=== PATIENT | female | born 1945 | race Caucasian/White ===

== ENCOUNTER 2017-03-15 13:11 | Emergency (ER) | payer MEDICARE, OTHER ==
[2017-03-15 13:39] VITALS: BP 132/59; PULSE 63; RESP 18; TEMP 98.1
[2017-03-15] MEDS ORDERED: GELATIN SPONGE,ABSORB (SMALL) 1 EACH SPONGE TOPICAL STA (13:57)
--- NOTE | 2017-03-15 13:59 | ED ---
Animal Bite HPI - General Chief Complaint: Animal Bite Stated Complaint: Dog Bite Time Seen by Provider: 03/15/17 13:41 Source: patient, RN notes reviewed, old records reviewed Mode of arrival: ambulatory Limitations: no limitations - History of Present Illness Initial Comments: This is a 72-year-old female presenting to emergency Department with chief complaint of a dog bite to her right fifth finger. Patient reports this occurred yesterday. She reports that she went to urgent care today to have it looked at because it continued to bleed. She reports that urgent care center here because they did not trust her that she knew the dog status of the rabies vaccination. Patient reports that her neighbor's dog does go to the reverse logistics analyst named Dr. Nichole. She reports that she believes that the dog is up- to-date on its vaccinations and has not missed a concern for rabies. Patient wound is superficial, no skin or deep laceration that needs to be sutured. She reports that she has full range of motion in the finger. She denies any other injuries or puncture wounds. Patient reports it is a small toy dog that caused the bite. Patient denies any recent fever, chills, shortness of breath, chest pain, back pain, abdominal pain, nausea vomiting, numbness or tingling, dysuria or hematuria, constipation or diarrhea, headaches or visual changes, or any other current symptoms - Related Data Previous Rx's Medication Instructions Recorded Amoxic-Pot Clav 875-125Mg 1 tab PO Q12HR #20 tablet 03/15/17 [Augmentin 875-125] Allergies Allergy/AdvReac Type Severity Reaction Status Date / Time No Known Allergies Allergy Verified 03/15/17 13:58 Review of Systems ROS Statement: Those systems with pertinent positive or pertinent negative responses have been documented in the HPI. ROS Other: All systems not noted in ROS Statement are negative. Past Medical History Past Medical History: No Reported History History of Any Multi-Drug Resistant Organisms: None Reported Past Surgical History: Section, Hysterectomy Past Psychological History: Depression Smoking Status: Never smoker Past Alcohol Use History: Occasional Past Drug Use History: None Reported General Exam - General Exam Comments Initial Comments: This is a 72-year-old female. No acute distress. She looks good for 7 Limitations: no limitations General appearance: alert, in no apparent distress Head exam: Present: atraumatic, normocephalic, normal inspection Eye exam: Present: normal appearance, PERRL, EOMI. Absent: scleral icterus, conjunctival injection, periorbital swelling ENT exam: Present: normal exam, mucous membranes moist Neck exam: Present: normal inspection. Absent: tenderness, meningismus, lymphadenopathy Respiratory exam: Present: normal lung sounds bilaterally. Absent: respiratory distress, wheezes, rales, rhonchi, stridor Cardiovascular Exam: Present: regular rate, normal rhythm, normal heart sounds. Absent: systolic murmur, diastolic murmur, rubs, gallop, clicks GI/Abdominal exam: Present: soft Extremities exam: Present: normal inspection, full ROM, normal capillary refill , other (1 cm laceration over her right fifth finger in the proximal dip. No deep laceration or puncture wounds that need to be sutured.). Absent: tenderness, pedal edema, joint swelling, calf tenderness Back exam: Present: normal inspection Neurological exam: Present: alert, oriented X3, CN II-XII intact Psychiatric exam: Present: normal affect, normal mood Skin exam: Present: warm, dry, intact, normal color. Absent: rash Course Vital Signs 03/15/17 13:35 Temperature 98.1 F Pulse Rate 63 Respiratory 18 Rate Blood Pressure 132/59 O2 Sat by Pulse 99 Oximetry Medical Decision Making - Medical Decision Making This is a 72-year-old female presenting to emergency Department with chief complaint of a dog bite to her right fifth finger. Patient reports this occurred yesterday. She reports that she went to urgent care today to have it looked at because it continued to bleed. She reports that urgent care center here because they did not trust her that she knew the dog status of the rabies vaccination. Patient reports that her neighbor's dog does go to the reverse logistics analyst named Dr. Nichole. She reports that she believes that the dog is up- to-date on its vaccinations and has not missed a concern for rabies. Patient wound is superficial, no skin or deep laceration that needs to be sutured. She reports that she has full range of motion in the finger. She denies any other injuries or puncture wounds. Patient reports it is a small toy dog that caused the bite. Patient reports that she is 99% sure that the dog is up-to-date on rabies needed help. Discussed the risks and benefits of doing this. Patient states that she does not want to receive the rabies prophylaxis. Patient will be started on Augmentin. Her finger was wrapped with Gelfoam and tube gauze. Patient will be instructed to follow-up with her primary care provider in next 2 or 3 days or return if there is any signs of infection over the hand. Discussed asking her neighbor to be under percent sure that she does not need to worry about rabies any vomiting. Patient has history plan will comply. Return parameters were discussed. Disposition Clinical Impression: Dog bite Disposition: HOME SELF-CARE Condition: Good Instructions: Animal Bite (ED) Additional Instructions: Patient advised to keep the finger covered for the next 48 hours. Asked her neighbor if the dog is up-to-date on vaccinations including rabies. If not the dog just needs to be 14 for the next 48 hours.If no signs or symptoms of rabies your findings and do not need to worry about the rabies immunoglobulin vaccinations. Completely anabiotic prescriptions. Return emergency department if any alarming signs or symptoms occur. Prescriptions: Amoxic-Pot Clav 875-125Mg [Augmentin 875-125] 1 tab PO Q12HR #20 tablet Referrals: John Davis DO [Primary Care Provider] - 1-2 days Time of Disposition: 13:57
== END 2017-03-15 14:15 | disposition home or self-care (01) ==
LOC: EC 13:11
DX: S61.216A Laceration without foreign body of right little finger without damage to nail, initial encounter (principal); W54.0XXA Bitten by dog, initial encounter
CPT/HCPCS: 99283

== ENCOUNTER 2018-06-04 13:11 | Emergency (ER) | payer MEDICARE, OTHER ==
[2018-06-04 13:22] VITALS: RESP 18
[2018-06-04] MEDS ORDERED: SODIUM CHLORIDE 0.9% 1,000 ML IV STA (14:09)
[2018-06-04] MEDS ORDERED: ONDANSETRON 4 MG/2 ML VIAL IVP STA (14:09)
--- NOTE | 2018-06-04 14:13 | ED ---
General Adult HPI - General Chief complaint: Nausea/Vomiting/Diarrhea Stated complaint: Diarrhea & Nausea Source: patient Mode of arrival: ambulatory Limitations: no limitations - History of Present Illness Initial comments: Dictation was produced using [employer] dictation software. please excuse any grammatical, word or spelling errors. Chief Complaint: 73-year-old female past medical history of Alzheimer' s and hypertension presents with 5 days of diarrhea. History of Present Illness: Patient states he recently had traveled to [place] for a vacation. She had finished the night before the onset of her symptoms. Couple hours before the onset of her symptoms she ate some crepes at the local [employer]. States she's been having multiple bouts of watery diarrhea. Patient denies any abdominal pain. No vomiting however there is some nausea. No recent antibiotics. No travel outside the [place] within the last several years. Denies any constitutional symptoms The ROS documented in this emergency department record has been reviewed and confirmed by me. Those systems with pertinent positive or negative responses have been documented in the HPI. All other systems are other negative and/or noncontributory. - Related Data Home Medications Medication Instructions Recorded Confirmed Aspirin 81 mg PO HS 06/04/18 06/04/18 Cholecalciferol (Vitamin D3) 3,000 unit PO HS 06/04/18 06/04/18 [Vitamin D3] DULoxetine HCL [Cymbalta] 60 mg PO DAILY 06/04/18 06/04/18 Losartan Potassium 100 mg PO DAILY 06/04/18 06/04/18 Potassium Chloride ER [K-Dur 10] 10 meq PO DAILY 06/04/18 06/04/18 Previous Rx's Medication Instructions Recorded Loperamide HCl [Imodium A-D] 2 mg PO QID PRN #20 tablet 06/04/18 Ondansetron Odt [Zofran Odt] 4 mg PO Q8HR PRN #12 tab 06/04/18 Allergies Allergy/AdvReac Type Severity Reaction Status Date / Time No Known Allergies Allergy Verified 06/04/18 13:17 Review of Systems ROS Statement: Those systems with pertinent positive or pertinent negative responses have been documented in the HPI. ROS Other: All systems not noted in ROS Statement are negative. Past Medical History Past Medical History: Hypertension Additional Past Medical History / Comment(s): alzheimers History of Any Multi-Drug Resistant Organisms: None Reported Past Surgical History: Section, Hysterectomy Past Psychological History: Depression Smoking Status: Never smoker Past Alcohol Use History: Occasional Past Drug Use History: None Reported General Exam - General Exam Comments Initial Comments: PHYSICAL EXAM: General Impression: Alert and oriented x3, not in acute distress HEENT: Normocephalic atraumatic, extra-ocular movements intact, pupils equal and reactive to light bilaterally, mucous membranes moist. Cardiovascular: Heart regular rate and rhythm, S1&S2 audible, no murmurs, rubs or gallops Chest: Lungs clear to auscultation bilaterally, no rhonchi, no wheeze, no rales Abdomen: Bowel sounds present, abdomen soft, non-tender, non-distended, no organomegaly Musculoskeletal: Pulses present and equal in all extremities, no peripheral edema Motor: Power 5/5 bilaterally, no focal deficits noted Neurological: CN II-XII grossly intact, no focal motor or sensory deficits noted Skin: Intact with no visualized rashes Psych: Normal affect and mood Limitations: no limitations Course Vital Signs 06/04/18 06/04/18 13:17 14:38 Temperature 98.7 F Pulse Rate 66 65 Respiratory 18 18 Rate Blood Pressure 155/69 168/76 O2 Sat by Pulse 100 99 Oximetry Medical Decision Making - Medical Decision Making ED course: 73-year-old female with chief complaint of diarrhea. vital signs upon arrival are within acceptable limits. No indication for antibiotic administration given no high-risk features in history of present illness. Laboratory evaluation obtained. No high-risk features for patient's diarrhea. No indication for antibiotics. Patient be given loperamide. She is also given Zofran to tolerate by mouth to maintain hydration. She is follow-up with primary care physician upon discharge. Patient understandable agreeable to this plan. - Lab Data Result diagrams: 06/04/18 14:29 06/04/18 14:29 Lab Results 06/04/18 06/04/18 Range/Units 14:29 14:29 WBC 8.4 (3.8-10.6) k/uL RBC 4.41 (3.80-5.40) m/uL Hgb 13.2 (11.4-16.0) gm/dL Hct 39.2 (34.0-46.0) % MCV 88.9 (80.0-100.0) fL MCH 29.9 (25.0-35.0) pg MCHC 33.6 (31.0-37.0) g/dL RDW 13.5 (11.5-15.5) % Plt Count 266 (150-450) k/uL Neutrophils % 71 % Lymphocytes % 21 % Monocytes % 4 % Eosinophils % 3 % Basophils % 1 % Neutrophils # 6.0 (1.3-7.7) k/uL Lymphocytes # 1.8 (1.0-4.8) k/uL Monocytes # 0.4 (0-1.0) k/uL Eosinophils # 0.2 (0-0.7) k/uL Basophils # 0.0 (0-0.2) k/uL Sodium 143 (137-145) mmol/L Potassium 4.0 (3.5-5.1) mmol/L Chloride 109 H (98-107) mmol/L Carbon Dioxide 23 (22-30) mmol/L Anion Gap 11 mmol/L BUN 24 H (7-17) mg/dL Creatinine 0.90 (0.52-1.04) mg/dL Est GFR (CKD-EPI)AfAm 74 (>60 ml/min/1.73 sqM) Est GFR (CKD-EPI)NonAf 64 (>60 ml/min/1.73 sqM) Glucose 87 (74-99) mg/dL Calcium 9.9 (8.4-10.2) mg/dL Total Bilirubin 1.2 (0.2-1.3) mg/dL AST 21 (14-36) U/L ALT 21 (9-52) U/L Alkaline Phosphatase 71 (38-126) U/L Total Protein 7.8 (6.3-8.2) g/dL Albumin 4.7 (3.5-5.0) g/dL Lipase 107 (23-300) U/L Disposition Clinical Impression: Diarrhea Disposition: HOME SELF-CARE Instructions: Acute Diarrhea (ED) Prescriptions: Loperamide HCl [Imodium A-D] 2 mg PO QID PRN #20 tablet PRN Reason: Diarrhea Ondansetron Odt [Zofran Odt] 4 mg PO Q8HR PRN #12 tab PRN Reason: Nausea Is patient prescribed a controlled substance at d/c from ED?: No Referrals: John Davis DO [Primary Care Provider] - 1-2 days Time of Disposition: 15:24
[2018-06-04 15:03] LABS: Basophils % (A) 1 %; Eosinophils # (A) 0.2 k/uL (0-0.7); Eosinophils % (A) 3 %; HCT 39.2 % (34.0-46.0); HGB 13.2 gm/dL (11.4-16.0); Lymphocytes # (A) 1.8 k/uL (1.0-4.8); Lymphocytes % (A) 21 %; MCH 29.9 pg (25.0-35.0); MCHC 33.6 g/dL (31.0-37.0); MCV 88.9 fL (80.0-100.0); Mean Platelet Volume 6.8; Monocytes # (A) 0.4 k/uL (0-1.0); Monocytes % (A) 4 %; Neutrophils % (A) 71 %; Platelet Count 266 k/uL (150-450); RBC 4.41 m/uL (3.80-5.40); RDW 13.5 % (11.5-15.5); WBC 8.4 k/uL (3.8-10.6)
[2018-06-04 15:06] LABS: Albumin 4.7 g/dL (3.5-5.0); Calcium 9.9 mg/dL (8.4-10.2); Total Bilirubin 1.2 mg/dL (0.2-1.3); Total Protein 7.8 g/dL (6.3-8.2)
[2018-06-04 16:14] VITALS: BP 182/76; PULSE 70; TEMP 98.1
== END 2018-06-04 16:15 | disposition home or self-care (01) ==
LOC: EC 13:11
DX: R19.7 Diarrhea, unspecified (principal); R11.0 Nausea; I10 Essential (primary) hypertension; F32.9 Major depressive disorder, single episode, unspecified; Z79.82 Long term (current) use of aspirin; Z79.899 Other long term (current) drug therapy
CPT/HCPCS: 36415; 80053; 83690; 85025; 99284; 96374; 96361; J2405

== ENCOUNTER 2018-09-21 08:04 | Day surgery (SDC) | payer MEDICARE, OTHER ==
[2018-09-19 10:27] VITALS: BMI 27.1
[~2018-09-21 08:04] MED LIST: LACTATED RINGERS 1,000 ML IV SCH; LIDOCAINE 1% 20 ML VIAL (10MG/ML) FOR IV START INTRADERMA PRN
[2018-09-21 08:49] VITALS: RESP 16; TEMP 98
[2018-09-21] MEDS ORDERED: PROPOFOL 10 MG/ML 20 ML VIAL IV ONE (09:11)
--- NOTE | 2018-09-21 09:37 | P.PCN ---
Date of Procedure: 09/21/18 Procedure(s) Performed: BRIEF HISTORY: Patient is a 73-year-old pleasant female, scheduled for an elective colonoscopy as a part of screening for colorectal neoplasia. PROCEDURE PERFORMED: Colonoscopy. PREOPERATIVE DIAGNOSIS: Screening for colon cancer. IV sedation per Anesthesia. PROCEDURE: After informed consent was obtained, the patient, was brought into the endoscopy unit. IV sedation was administered by Anesthesia under continuous monitoring. Digital rectal examination was normal. Initially the Olympus CF- 160 flexible video colonoscope was then inserted in the rectum and the scope could not be advanced beyond the sigmoid colon. The scope was removed and a pediatric colonoscope was then introduced into the rectum and gradually gradually advanced into the cecum without any difficulty. Careful examination was performed as the scope was gradually being withdrawn. Ileocecal valve and the appendiceal orifice were visualized and appeared normal. Prep was excellent. Mucosa of the cecum, ascending colon, transverse colon, descending colon, sigmoid colon, and rectum appeared normal. Scattered sigmoidal diverticulosis seen. Retroflexion was performed in the rectum and no lesions were seen. The patient tolerated the procedure well. IMPRESSION: Normal-appearing colon from rectum to cecum with no evidence of colorectal neoplasia. Scattered sigmoid diverticulosis. RECOMMENDATIONS: Findings of this examination were discussed with the patient as well as a family. She was advised to have a repeat screening colonoscopy in 10 years.
[2018-09-21 10:09] VITALS: BP 154/65; PULSE 56
== END 2018-09-21 10:41 | disposition home or self-care (01) ==
LOC: ORWHC2ENDO 08:04
PROVIDERS: ATTEND Internal Medicine Gastroenterology
DX: Z12.11 Encounter for screening for malignant neoplasm of colon (principal); K57.30 Diverticulosis of large intestine without perforation or abscess without bleeding; F41.9 Anxiety disorder, unspecified; F03.90 Unspecified dementia, unspecified severity, without behavioral disturbance, psychotic disturbance, mood disturbance, and anxiety; Z79.82 Long term (current) use of aspirin; Z79.899 Other long term (current) drug therapy
CPT/HCPCS: J2704; G0121

== ENCOUNTER 2020-09-24 14:29 | Emergency (ER) | payer MEDICARE, OTHER ==
--- NOTE | 2020-09-24 16:43 | ED ---
Psych HPI - General Source: patient, family, RN notes reviewed Mode of arrival: ambulatory Limitations: no limitations <Mynor Gaxiola - Last Filed: 09/24/20 16:42> <Dayo Casper - Last Filed: 09/30/20 23:17> - General Chief Complaint: Psychiatric Symptoms Stated Complaint: psych-sent by PCP Time Seen by Provider: 09/24/20 14:43 - History of Present Illness Initial Comments: This a 75-year-old female presents emergency Department from PCPs office for psychiatric evaluation. Patient reportedly has a history of Alzheimer's but the last day or 2 she developed psychotic features. Patient has been very paranoid believing that people are in her house. Patient is here with significant other stating that she's been up all night he states that she thought he was some he also in the household. She also believes that her daughter lives in the house though she does not. She has no physical complaints. No history of this. Patient denies being suicidal or homicidal (Mynor Gaxiola) - Related Data Home Medications Medication Instructions Recorded Confirmed DULoxetine HCL [Cymbalta] 60 mg PO DAILY 06/04/18 09/24/20 Losartan Potassium 100 mg PO DAILY 06/04/18 09/24/20 Donepezil [Aricept] 10 mg PO HS 09/05/18 09/24/20 Acetaminophen [Tylenol] 650 mg PO Q6H PRN 09/24/20 09/24/20 Cyanocobalamin (Vitamin B-12) 1,000 mcg PO DAILY 09/24/20 09/24/20 [Vitamin B-12] Memantine [Namenda] 10 mg PO BID 09/24/20 09/24/20 Metoprolol Succinate [Toprol XL] 25 mg PO DAILY 09/24/20 09/24/20 Potassium Chloride [Klor-Con 10] 10 meq PO DAILY 09/24/20 09/24/20 QUEtiapine [SEROquel] 100 mg PO BID 09/24/20 09/24/20 Sennosides-Docusate Sodium 1 tab PO BID PRN 09/24/20 09/24/20 [Senokot-S] Spironolactone 12.5 mg PO DAILY 09/24/20 09/24/20 cloNIDine HCL [Catapres] 0.1 mg PO HS 09/24/20 09/24/20 hydrALAZINE HCL [Apresoline] 100 mg PO BID 09/24/20 09/24/20 Allergies Allergy/AdvReac Type Severity Reaction Status Date / Time No Known Allergies Allergy Verified 09/24/20 16:25 Review of Systems ROS Other: All systems not noted in ROS Statement are negative. <Mynor Gaxiola - Last Filed: 09/24/20 16:42> ROS Other: All systems not noted in ROS Statement are negative. <Dayo Casper - Last Filed: 09/30/20 23:17> ROS Statement: Those systems with pertinent positive or pertinent negative responses have been documented in the HPI. Past Medical History Past Medical History: Asthma, GERD/Reflux, Hypertension, Memory Impairment, Renal Disease, Skin Disorder Additional Past Medical History / Comment(s): Alzheimers. ASTHMA CHILD. HX BOWEL IRREG, HAS ALOT OF GAS. CHRONIC KIDNEY FAILURE, PER LABS. SL RASH ON SHINS. History of Any Multi-Drug Resistant Organisms: None Reported Past Surgical History: Section, Cholecystectomy, Hysterectomy Additional Past Surgical History / Comment(s): COLONOSCOPY. Past Anesthesia/Blood Transfusion Reactions: Motion Sickness Past Psychological History: Depression Smoking Status: Never smoker Past Alcohol Use History: Occasional Past Drug Use History: None Reported - Past Family History Mother Family Medical History: Dementia <Mynor Gaxiola - Last Filed: 09/24/20 16:42> General Exam Limitations: no limitations General appearance: alert, in no apparent distress, anxious Head exam: Present: atraumatic, normocephalic, normal inspection Eye exam: Present: normal appearance, PERRL, EOMI. Absent: scleral icterus, conjunctival injection, periorbital swelling ENT exam: Present: normal exam, normal oropharynx, mucous membranes moist Neck exam: Present: normal inspection, full ROM. Absent: tenderness, meningis mus, lymphadenopathy Respiratory exam: Present: normal lung sounds bilaterally. Absent: respiratory distress, wheezes, rales, rhonchi, stridor Cardiovascular Exam: Present: regular rate, normal rhythm, normal heart sounds. Absent: systolic murmur, diastolic murmur, rubs, gallop, clicks GI/Abdominal exam: Present: soft, normal bowel sounds. Absent: distended, tenderness, guarding, rebound, rigid Neurological exam: Present: alert, oriented X3, CN II-XII intact Psychiatric exam: Present: anxious Skin exam: Present: warm, dry, intact, normal color. Absent: rash <Mynor Gaxiola - Last Filed: 09/24/20 16:42> Course Vital Signs 09/24/20 09/24/20 09/24/20 14:35 17:54 18:00 Temperature 98.0 F 96.2 F L Pulse Rate 66 67 Respiratory 20 17 18 Rate Blood Pressure 194/73 165/79 O2 Sat by Pulse 100 99 Oximetry 09/24/20 09/24/20 09/25/20 19:00 23:52 06:44 Temperature 98.4 F 98.4 F Pulse Rate 10 L 62 Respiratory 18 16 16 Rate Blood Pressure 191/86 192/65 O2 Sat by Pulse 99 98 99 Oximetry 09/25/20 09/25/20 09/25/20 08:32 09:22 13:00 Temperature 98.4 F Pulse Rate 71 72 72 Respiratory 18 18 18 Rate Blood Pressure 191/81 138/65 138/65 O2 Sat by Pulse 98 98 98 Oximetry Medical Decision Making - Lab Data Result diagrams: 09/25/20 07:11 09/25/20 07:11 - EKG Data -: EKG Interpreted by Id EKG shows normal: sinus rhythm, axis (Normal), intervals (Normal), QRS complexes (Normal), ST-T waves (Normal) Rate: bradycardia (Rate 57 bpm) <Dayo Casper - Last Filed: 09/30/20 23:17> - Lab Data Lab Results 09/24/20 09/25/20 09/25/20 Range/Units 16:53 07:11 07:11 WBC 9.2 (3.8-10.6) k/uL RBC 3.87 (3.80-5.40) m/uL Hgb 12.3 (11.4-16.0) gm/dL Hct 35.5 (34.0-46.0) % MCV 91.8 (80.0-100.0) fL MCH 31.9 (25.0-35.0) pg MCHC 34.7 (31.0-37.0) g/dL RDW 12.8 (11.5-15.5) % Plt Count 282 (150-450) k/uL MPV 7.2 Neutrophils % 73 % Lymphocytes % 17 % Monocytes % 6 % Eosinophils % 2 % Basophils % 0 % Neutrophils # 6.7 (1.3-7.7) k/uL Lymphocytes # 1.5 (1.0-4.8) k/uL Monocytes # 0.5 (0-1.0) k/uL Eosinophils # 0.2 (0-0.7) k/uL Basophils # 0.0 (0-0.2) k/uL Sodium 141 (137-145) mmol/L Potassium 4.2 (3.5-5.1) mmol/L Chloride 108 H (98-107) mmol/L Carbon Dioxide 25 (22-30) mmol/L Anion Gap 8 mmol/L BUN 19 H (7-17) mg/dL Creatinine 0.96 (0.52-1.04) mg/dL Est GFR (CKD-EPI)AfAm 67 (>60 ml/min/1.73 sqM) Est GFR (CKD-EPI)NonAf 58 (>60 ml/min/1.73 sqM) Glucose 102 H (74-99) mg/dL Calcium 10.1 (8.4-10.2) mg/dL Total Bilirubin 1.5 H (0.2-1.3) mg/dL AST 23 (14-36) U/L ALT 12 (4-34) U/L Alkaline Phosphatase 54 (38-126) U/L Total Protein 7.6 (6.3-8.2) g/dL Albumin 4.7 (3.5-5.0) g/dL Urine Color Yellow Urine Appearance Cloudy H (Clear) Urine pH 5.5 (5.0-8.0) Ur Specific [place] 1.017 (1.001-1.035) Urine Protein Trace H (Negative) Urine Glucose (UA) Negative (Negative) Urine Ketones Negative (Negative) Urine Blood Negative (Negative) Urine Nitrite Negative (Negative) Urine Bilirubin Negative (Negative) Urine Urobilinogen <2.0 (<2.0) mg/dL Ur Leukocyte Esterase Moderate H (Negative) Urine RBC 10 H (0-5) /hpf Urine WBC 9 H (0-5) /hpf Urine WBC Clumps Few H (None) /hpf Ur Squamous Epith Cells 65 H (0-4) /hpf Urine Bacteria Occasional H (None) /hpf Hyaline Casts 3 H (0-2) /lpf Urine Mucus Many H (None) /hpf Urine Opiates Screen Not Detected (NotDetected) Ur Oxycodone Screen Not Detected (NotDetected) Urine Methadone Screen Not Detected (NotDetected) Ur Propoxyphene Screen Not Detected (NotDetected) Ur Barbiturates Screen Not Detected (NotDetected) U Tricyclic Antidepress Detected H (NotDetected) Ur Phencyclidine Scrn Not Detected (NotDetected) Ur Amphetamines Screen Not Detected (NotDetected) U Methamphetamines Scrn Not Detected (NotDetected) U Benzodiazepines Scrn Detected H (NotDetected) Urine Cocaine Screen Not Detected (NotDetected) U Marijuana (THC) Screen Not Detected (NotDetected) Coronavirus (PCR) (Not Detectd) 09/25/20 Range/Units 07:11 WBC (3.8-10.6) k/uL RBC (3.80-5.40) m/uL Hgb (11.4-16.0) gm/dL Hct (34.0-46.0) % MCV (80.0-100.0) fL MCH (25.0-35.0) pg MCHC (31.0-37.0) g/dL RDW (11.5-15.5) % Plt Count (150-450) k/uL MPV Neutrophils % % Lymphocytes % % Monocytes % % Eosinophils % % Basophils % % Neutrophils # (1.3-7.7) k/uL Lymphocytes # (1.0-4.8) k/uL Monocytes # (0-1.0) k/uL Eosinophils # (0-0.7) k/uL Basophils # (0-0.2) k/uL Sodium (137-145) mmol/L Potassium (3.5-5.1) mmol/L Chloride (98-107) mmol/L Carbon Dioxide (22-30) mmol/L Anion Gap mmol/L BUN (7-17) mg/dL Creatinine (0.52-1.04) mg/dL Est GFR (CKD-EPI)AfAm (>60 ml/min/1.73 sqM) Est GFR (CKD-EPI)NonAf (>60 ml/min/1.73 sqM) Glucose (74-99) mg/dL Calcium (8.4-10.2) mg/dL Total Bilirubin (0.2-1.3) mg/dL AST (14-36) U/L ALT (4-34) U/L Alkaline Phosphatase (38-126) U/L Total Protein (6.3-8.2) g/dL Albumin (3.5-5.0) g/dL Urine Color Urine Appearance (Clear) Urine pH (5.0-8.0) Ur Specific [place] (1.001-1.035) Urine Protein (Negative) Urine Glucose (UA) (Negative) Urine Ketones (Negative) Urine Blood (Negative) Urine Nitrite (Negative) Urine Bilirubin (Negative) Urine Urobilinogen (<2.0) mg/dL Ur Leukocyte Esterase (Negative) Urine RBC (0-5) /hpf Urine WBC (0-5) /hpf Urine WBC Clumps (None) /hpf Ur Squamous Epith Cells (0-4) /hpf Urine Bacteria (None) /hpf Hyaline Casts (0-2) /lpf Urine Mucus (None) /hpf Urine Opiates Screen (NotDetected) Ur Oxycodone Screen (NotDetected) Urine Methadone Screen (NotDetected) Ur Propoxyphene Screen (NotDetected) Ur Barbiturates Screen (NotDetected) U Tricyclic Antidepress (NotDetected) Ur Phencyclidine Scrn (NotDetected) Ur Amphetamines Screen (NotDetected) U Methamphetamines Scrn (NotDetected) U Benzodiazepines Scrn (NotDetected) Urine Cocaine Screen (NotDetected) U Marijuana (THC) Screen (NotDetected) Coronavirus (PCR) Not Detected (Not Detectd) Disposition <Mynor Gaxiola - Last Filed: 09/24/20 16:42> Is patient prescribed a controlled substance at d/c from ED?: No - Out of Hospital Transfer - Req. Specs Out of Hospital Transfer - Requested Specifics: Psychiatric Non-ICU <Dayo Casper - Last Filed: 09/30/20 23:17> Clinical Impression: Dementia Disposition: OTHER INSTITUTION NOT DEFINED Condition: Good Referrals: Alfredo Garner MD [Primary Care Provider] - 1-2 days
[2020-09-24 17:14] LABS: Appearance,Urine Cloudy (Clear); Bacteria,Urine Occasional /hpf; Bilirubin,Urine Negative (Negative); Blood,Urine Negative (Negative); Color,Urine Yellow; Glucose,Urine (UA) Negative (Negative); Hyaline Casts,Urine 3 /lpf (0-2); Ketones,Urine Negative (Negative); Leukocyte Esterase,Urine Moderate (Negative); Mucus,Urine Many /hpf; Nitrite,Urine Negative (Negative); PH, Urine 5.5 (5.0-8.0); Protein,Urine Trace (Negative); RBC,Urine 10 /hpf (0-5); Specific Gravity,Urine 1.017 (1.001-1.035); Squamous Epithelial Cell,Urine 65 /hpf (0-4); Urobilinogen,Urine <2.0 mg/dL (<2.0); WBC,Urine 9 /hpf (0-5)
[2020-09-24 17:16] LABS: Amphetamine Screen,Urine Not Detected (NotDetected); Barbiturate Screen,Urine Not Detected (NotDetected); Benzodiazepines Screen,Urine Detected (NotDetected); Cocaine Screen,Urine Not Detected (NotDetected); Methadone Screen, Urine Not Detected (NotDetected); Opiate Screen,Urine Not Detected (NotDetected); Oxycodone Screen, Urine Not Detected (NotDetected); Phencyclidine Screen,Urine Not Detected (NotDetected); Tricyclic Antidepressant,Urine Detected (NotDetected); Urn Cannabinoid Scrn Not Detected (NotDetected)
[2020-09-24] MEDS ORDERED: cloNIDine HCL 0.1 MG TAB PO SCH (23:15)
[2020-09-24] MEDS ORDERED: DONEPEZIL 10 MG TAB PO SCH (23:30)
[2020-09-24 23:54] VITALS: TEMP 98.4
[2020-09-25 07:39] LABS: Basophils % (A) 0 %; Eosinophils # (A) 0.2 k/uL (0-0.7); Eosinophils % (A) 2 %; HCT 35.5 % (34.0-46.0); HGB 12.3 gm/dL (11.4-16.0); Lymphocytes # (A) 1.5 k/uL (1.0-4.8); Lymphocytes % (A) 17 %; MCH 31.9 pg (25.0-35.0); MCHC 34.7 g/dL (31.0-37.0); MCV 91.8 fL (80.0-100.0); Mean Platelet Volume 7.2; Monocytes # (A) 0.5 k/uL (0-1.0); Monocytes % (A) 6 %; Neutrophils # (A) 6.7 k/uL (1.3-7.7); Neutrophils % (A) 73 %; Platelet Count 282 k/uL (150-450); RBC 3.87 m/uL (3.80-5.40); RDW 12.8 % (11.5-15.5); WBC 9.2 k/uL (3.8-10.6)
[2020-09-25 07:41] LABS: Albumin 4.7 g/dL (3.5-5.0); Calcium 10.1 mg/dL (8.4-10.2); Potassium 4.2 mmol/L (3.5-5.1); Total Bilirubin 1.5 mg/dL (0.2-1.3); Total Protein 7.6 g/dL (6.3-8.2)
[2020-09-25 08:34] VITALS: RESP 18
[2020-09-25] MEDS ORDERED: METOPROLOL SUCCINATE (ER) 25 MG TAB.ER.24H PO SCH (09:00)
[2020-09-25] MEDS ORDERED: MEMANTINE 10 MG TAB PO SCH (09:00)
[2020-09-25] MEDS ORDERED: DULoxetine HCL 60 MG CAPSULE.DR PO SCH (09:00)
[2020-09-25] MEDS ORDERED: hydrALAZINE HCL 50 MG TAB PO SCH (09:00)
[2020-09-25] MEDS ORDERED: LOSARTAN 50 MG TAB PO SCH (09:00)
[2020-09-25] MEDS ORDERED: CYANOCOBALAMIN 500 MCG TAB PO SCH (09:00)
[2020-09-25] MEDS ORDERED: QUEtiapine 100 MG TAB PO SCH (09:00)
[2020-09-25 09:23] VITALS: BP 138/65; PULSE 72
== END 2020-09-25 12:55 | disposition other institution (70) ==
LOC: EC 14:29
DX: Z03.818 Encounter for observation for suspected exposure to other biological agents ruled out (principal); G30.9 Alzheimer's disease, unspecified; F02.80 Dementia in other diseases classified elsewhere, unspecified severity, without behavioral disturbance, psychotic disturbance, mood disturbance, and anxiety; F32.9 Major depressive disorder, single episode, unspecified; K21.9 Gastro-esophageal reflux disease without esophagitis; I12.9 Hypertensive chronic kidney disease with stage 1 through stage 4 chronic kidney disease, or unspecified chronic kidney disease; N18.9 Chronic kidney disease, unspecified; Z79.899 Other long term (current) drug therapy
CPT/HCPCS: 36415; 80053; 80306; 81001; 82075; 85025; 87635; 93005; 99285

== ENCOUNTER 2021-04-16 10:26 | Emergency (ER) | payer MEDICARE, OTHER ==
[2021-04-16 10:33] VITALS: RESP 18; TEMP 98
--- NOTE | 2021-04-16 12:52 | ED ---
Psych HPI - General Chief Complaint: Psychiatric Symptoms Stated Complaint: Mental Health Time Seen by Provider: 04/16/21 10:34 Source: patient, RN notes reviewed Mode of arrival: ambulatory - History of Present Illness Initial Comments: A she is a 76-year-old female brought in by her due to concerns for developing dementia. 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 notes that patient does not remember who he is this morning. While sitting up the room patient states that he was a family friend. She was a very polite well mannered individual in no apparent distress or pain. wants patient evaluated by psych nurse. 90 chest pain shortness breath headache nausea vomiting diarrhea constipation fever fatigue chills. - Related Data Home Medications Medication Instructions Recorded Confirmed DULoxetine HCL [Cymbalta] 60 mg PO DAILY 06/04/18 04/16/21 Losartan Potassium 100 mg PO DAILY 06/04/18 04/16/21 Donepezil [Aricept] 10 mg PO HS 09/05/18 04/16/21 Memantine [Namenda] 10 mg PO BID 09/24/20 04/16/21 QUEtiapine [SEROquel] 100 mg PO BID 09/24/20 04/16/21 Aspirin EC [Ecotrin Low Dose] 81 mg PO DAILY 04/16/21 04/16/21 Atorvastatin [Lipitor] 20 mg PO HS 04/16/21 04/16/21 Diclofenac Sodium 50 mg PO BID 04/16/21 04/16/21 Famotidine [Pepcid] 40 mg PO Q12H 04/16/21 04/16/21 Isosorbide Mononitrate ER [Imdur] 30 mg PO DAILY 04/16/21 04/16/21 Metoprolol Tartrate [Lopressor] 50 mg PO BID 04/16/21 04/16/21 amLODIPine [Norvasc] 5 mg PO BID 04/16/21 04/16/21 hydrALAZINE HCL 50 mg PO TID 04/16/21 04/16/21 hydroCHLOROthiazide 25 mg PO DAILY 04/16/21 04/16/21 Allergies Allergy/AdvReac Type Severity Reaction Status Date / Time No Known Allergies Allergy Verified 04/16/21 10:28 Review of Systems ROS Statement: Those systems with pertinent positive or pertinent negative responses have been documented in the HPI. ROS Other: All systems not noted in ROS Statement are negative. Past Medical History Past Medical History: Asthma, GERD/Reflux, Hypertension, Memory Impairment, Renal Disease, Skin Disorder Additional Past Medical History / Comment(s): Alzheimers. ASTHMA CHILD. HX BOWEL IRREG, HAS ALOT OF GAS. CHRONIC KIDNEY FAILURE, PER LABS. SL RASH ON SHINS. History of Any Multi-Drug Resistant Organisms: None Reported Past Surgical History: Section, Cholecystectomy, Hysterectomy Additional Past Surgical History / Comment(s): COLONOSCOPY. Past Anesthesia/Blood Transfusion Reactions: Motion Sickness Past Psychological History: Depression Smoking Status: Never smoker Past Alcohol Use History: Occasional Past Drug Use History: None Reported - Past Family History Mother Family Medical History: Dementia General Exam Limitations: no limitations General appearance: alert, in no apparent distress, other (Patient seemed slightly confused) Head exam: Present: atraumatic, normocephalic, normal inspection Eye exam: Present: normal appearance, PERRL, EOMI. Absent: scleral icterus, conjunctival injection, periorbital swelling Neck exam: Present: normal inspection Respiratory exam: Present: normal lung sounds bilaterally. Absent: respiratory distress, wheezes, rales, rhonchi, stridor Cardiovascular Exam: Present: regular rate, normal rhythm, normal heart sounds. Absent: systolic murmur, diastolic murmur, rubs, gallop, clicks GI/Abdominal exam: Present: soft, normal bowel sounds. Absent: distended, tenderness, guarding, rebound, rigid Extremities exam: Present: normal inspection, full ROM, normal capillary refill. Absent: tenderness, pedal edema, joint swelling, calf tenderness Neurological exam: Present: alert, oriented X3 Psychiatric exam: Present: normal affect, normal mood Skin exam: Present: warm, dry, intact, normal color. Absent: rash Course Vital Signs 04/16/21 10:28 Temperature 98 F Pulse Rate 55 L Respiratory 18 Rate Medical Decision Making - Medical Decision Making 76-year-old female here for evaluation for possible dementia. Urine drug screen, BAT, urinalysis ordered. Recent clear to see EPS for evaluation. Case discussed with Dr. Austin Patient state they're leaving AGAINST MEDICAL ADVICE at this time as a been here for almost 6 hours. There were told that this is because EPS like to urgency to see patients in the ER. - Lab Data Lab Results 04/16/21 Range/Units 12:50 Urine Color Yellow Urine Appearance Clear (Clear) Urine pH 7.0 (5.0-8.0) Ur Specific [place] 1.012 (1.001-1.035) Urine Protein Trace H (Negative) Urine Glucose (UA) Negative (Negative) Urine Ketones Negative (Negative) Urine Blood Negative (Negative) Urine Nitrite Negative (Negative) Urine Bilirubin Negative (Negative) Urine Urobilinogen <2.0 (<2.0) mg/dL Ur Leukocyte Esterase Negative (Negative) Urine Opiates Screen Not Detected (NotDetected) Ur Oxycodone Screen Not Detected (NotDetected) Urine Methadone Screen Not Detected (NotDetected) Ur Propoxyphene Screen Not Detected (NotDetected) Ur Barbiturates Screen Not Detected (NotDetected) U Tricyclic Antidepress Not Detected (NotDetected) Ur Phencyclidine Scrn Not Detected (NotDetected) Ur Amphetamines Screen Not Detected (NotDetected) U Methamphetamines Scrn Not Detected (NotDetected) U Benzodiazepines Scrn Not Detected (NotDetected) Urine Cocaine Screen Not Detected (NotDetected) U Marijuana (THC) Screen Not Detected (NotDetected) Disposition Clinical Impression: Confusion, Dementia Disposition: Left Against Medical Advice Condition: Stable Instructions (If sedation given, give patient instructions): Dementia (ED) Is patient prescribed a controlled substance at d/c from ED?: No Referrals: Alfredo Garner MD [Primary Care Provider] - 1-2 days Time of Disposition: 16:27
[2021-04-16 13:02] LABS: Appearance,Urine Clear (Clear); Bilirubin,Urine Negative (Negative); Blood,Urine Negative (Negative); Color,Urine Yellow; Glucose,Urine (UA) Negative (Negative); Ketones,Urine Negative (Negative); Leukocyte Esterase,Urine Negative (Negative); Nitrite,Urine Negative (Negative); Protein,Urine Trace (Negative); Specific Gravity,Urine 1.012 (1.001-1.035); Urobilinogen,Urine <2.0 mg/dL (<2.0)
[2021-04-16 13:29] LABS: Amphetamine Screen,Urine Not Detected (NotDetected); Barbiturate Screen,Urine Not Detected (NotDetected); Benzodiazepines Screen,Urine Not Detected (NotDetected); Cocaine Screen,Urine Not Detected (NotDetected); Methadone Screen, Urine Not Detected (NotDetected); Opiate Screen,Urine Not Detected (NotDetected); Oxycodone Screen, Urine Not Detected (NotDetected); Phencyclidine Screen,Urine Not Detected (NotDetected); Tricyclic Antidepressant,Urine Not Detected (NotDetected); Urn Cannabinoid Scrn Not Detected (NotDetected)
[2021-04-16 16:42] VITALS: BP 138/69; PULSE 62
== END 2021-04-16 16:35 | disposition left against medical advice (07) ==
LOC: EC 10:26
DX: R41.0 Disorientation, unspecified (principal); F02.80 Dementia in other diseases classified elsewhere, unspecified severity, without behavioral disturbance, psychotic disturbance, mood disturbance, and anxiety; I12.9 Hypertensive chronic kidney disease with stage 1 through stage 4 chronic kidney disease, or unspecified chronic kidney disease; N18.9 Chronic kidney disease, unspecified; F32.9 Major depressive disorder, single episode, unspecified; J45.909 Unspecified asthma, uncomplicated; K21.9 Gastro-esophageal reflux disease without esophagitis; Z79.82 Long term (current) use of aspirin; Z90.49 Acquired absence of other specified parts of digestive tract; Z90.710 Acquired absence of both cervix and uterus; Z53.29 Procedure and treatment not carried out because of patient's decision for other reasons
CPT/HCPCS: 80306; 81003; 82075; 99283

== ENCOUNTER 2022-05-23 16:28 | Observation (INO) | payer MEDICARE, OTHER ==
[2022-05-23] MEDS ORDERED: SODIUM CHLORIDE 0.9% 1,000 ML IV STA (16:40)
[2022-05-23] MEDS ORDERED: ONDANSETRON 4 MG/2 ML VIAL IVP STA (16:40)
--- NOTE | 2022-05-23 16:50 | ED ---
General Adult HPI - General Chief complaint: Nausea/Vomiting/Diarrhea Stated complaint: Weakness/Sick Time Seen by Provider: 05/23/22 16:34 Source: patient, RN notes reviewed Mode of arrival: ambulatory Limitations: no limitations - History of Present Illness Initial comments: This is a pleasant 77-year-old female presents complaining of nausea which actually started yesterday. Patient has had no vomiting. No chest pain or shortness of breath. No diarrhea. No constipation. When questioned, patient does complain of some epigastric discomfort. No headache, no fever or chills, no changes in vision or hearing, no sore throat or difficulty with speech, no neck pain, no chest pain or shortness of breath, no abdominal pain, no vomiting, no changes in urination or bowel movements, no numbness or tingling, no extremity pain, no skin rashes or lesions. Past medical, surgical, social, and family history reviewed. - Related Data Home Medications Medication Instructions Recorded Confirmed DULoxetine HCL [Cymbalta] 60 mg PO DAILY 06/04/18 05/23/22 Losartan Potassium 100 mg PO DAILY 06/04/18 05/23/22 Memantine [Namenda] 10 mg PO BID 09/24/20 05/23/22 Aspirin EC [Ecotrin Low Dose] 81 mg PO DAILY 04/16/21 05/23/22 Diclofenac Sodium 50 mg PO BID 04/16/21 05/23/22 Isosorbide Mononitrate ER [Imdur] 30 mg PO DAILY 04/16/21 05/23/22 Metoprolol Tartrate [Lopressor] 50 mg PO BID 04/16/21 05/23/22 amLODIPine [Norvasc] 5 mg PO BID 04/16/21 05/23/22 hydroCHLOROthiazide 25 mg PO DAILY 04/16/21 05/23/22 hydrALAZINE HCL 10 mg PO BID 05/23/22 05/23/22 risperiDONE [RisperDAL] 0.25 mg PO TID 05/23/22 05/23/22 Allergies Allergy/AdvReac Type Severity Reaction Status Date / Time No Known Allergies Allergy Verified 05/23/22 19:06 Review of Systems ROS Statement: Those systems with pertinent positive or pertinent negative responses have been documented in the HPI. ROS Other: All systems not noted in ROS Statement are negative. Past Medical History Past Medical History: Asthma, GERD/Reflux, Hypertension, Memory Impairment, Renal Disease, Skin Disorder Additional Past Medical History / Comment(s): Alzheimers. ASTHMA CHILD. HX BOWEL IRREG, HAS ALOT OF GAS. CHRONIC KIDNEY FAILURE, PER LABS. SL RASH ON SHINS. History of Any Multi-Drug Resistant Organisms: None Reported Past Surgical History: Section, Cholecystectomy, Hysterectomy Additional Past Surgical History / Comment(s): COLONOSCOPY. Past Anesthesia/Blood Transfusion Reactions: Motion Sickness Past Psychological History: Depression Smoking Status: Never smoker Past Alcohol Use History: Occasional Past Drug Use History: None Reported - Past Family History Mother Family Medical History: Dementia General Exam - General Exam Comments Initial Comments: Patient in no significant distress. Does not appear to be ill or toxic. Vital signs reviewed. Appears to be adequately hydrated. No mottling. Normal capillary refill. Cranial nerves II through XII grossly intact, patient noted be hypertensive at 198/74. Limitations: no limitations General appearance: alert, in no apparent distress Head exam: Present: atraumatic, normocephalic, normal inspection Eye exam: Present: normal appearance, PERRL, EOMI. Absent: scleral icterus, conjunctival injection, periorbital swelling ENT exam: Present: normal exam, mucous membranes moist, normal external ear exam. Absent: mucous membranes dry Neck exam: Present: normal inspection, full ROM. Absent: tenderness, meningismus, lymphadenopathy Respiratory exam: Present: normal lung sounds bilaterally. Absent: respiratory distress, wheezes, rales, rhonchi, stridor Cardiovascular Exam: Present: regular rate, normal rhythm, systolic murmur (3/6 systolic murmur heard best at the right second intercostal space). Absent: normal heart sounds, diastolic murmur, rubs, gallop, clicks GI/Abdominal exam: Present: soft, tenderness (Mild tenderness to palpation epigastrium), normal bowel sounds. Absent: distended, guarding, rebound, rigid Extremities exam: Present: normal inspection, full ROM, normal capillary refill. Absent: tenderness, pedal edema, joint swelling, calf tenderness Back exam: Present: normal inspection Neurological exam: Present: alert, oriented X3, CN II-XII intact Psychiatric exam: Present: normal affect, normal mood Skin exam: Present: warm, dry, intact, normal color. Absent: rash Course Vital Signs 05/23/22 16:31 Temperature 99.1 F Pulse Rate 78 Respiratory 20 Rate Blood Pressure 198/74 O2 Sat by Pulse 99 Oximetry EKG Findings - EKG Comments: EKG Findings:: EKG done at 1720 and read by the ED attending physician reveals a rate of 68, normal intervals, normal axis, no evidence of acute ST or T-wave elevation. Poor R-wave progression noted. Normal QRS morphology. When compared to the previous study from 2019 there appears to be no significant change. Medical Decision Making - Medical Decision Making Differential diagnosis includes cardiac diseaseespecially given the patient's epigastric discomfort, peptic ulcer disease, gastritis, pancreatitis, gallbladder disease, other intra-abdominal inflammatory versus infectious etiology possible. Is not appeared to be consistent with vascular etiology. There is no pulsatile mass. We'll also add on a COVID-19 test. Noted the patient has a systolic murmur heard at the right second intercostal space which she previously has not been diagnosed with. Discussed in detail with the patient's PCP who wanted the patient put in under observation. He also requested cardiology consultation and psychiatric consult ation on the patient. This was ordered. We'll order the patient's antihypertensive. Aspirin given in the ER. We'll order GI prophylaxis as well. The case was discussed in detail with ED attending physician. Presentation, findings, treatment plan discussed in detail. [employer] Dr. Sosa - Lab Data Result diagrams: 05/23/22 17:07 05/23/22 17:07 Lab Results 05/23/22 05/23/22 05/23/22 Range/Units 17:07 17:07 17:07 WBC 6.8 (3.8-10.6) k/uL RBC 3.39 L (3.80-5.40) m/uL Hgb 11.2 L (11.4-16.0) gm/dL Hct 32.4 L (34.0-46.0) % MCV 95.5 (80.0-100.0) fL MCH 32.9 (25.0-35.0) pg MCHC 34.5 (31.0-37.0) g/dL RDW 13.3 (11.5-15.5) % Plt Count 228 (150-450) k/uL MPV 7.7 Neutrophils % 72 % Lymphocytes % 19 % Monocytes % 5 % Eosinophils % 3 % Basophils % 0 % Neutrophils # 4.9 (1.3-7.7) k/uL Lymphocytes # 1.3 (1.0-4.8) k/uL Monocytes # 0.3 (0-1.0) k/uL Eosinophils # 0.2 (0-0.7) k/uL Basophils # 0.0 (0-0.2) k/uL Sodium 139 (137-145) mmol/L Potassium 4.4 (3.5-5.1) mmol/L Chloride 109 H (98-107) mmol/L Carbon Dioxide 21 L (22-30) mmol/L Anion Gap 9 mmol/L BUN 15 (7-17) mg/dL Creatinine 1.04 (0.52-1.04) mg/dL Est GFR (CKD-EPI)AfAm 60 (>60 ml/min/1.73 sqM) Est GFR (CKD-EPI)NonAf 52 (>60 ml/min/1.73 sqM) Glucose 127 H (74-99) mg/dL Calcium 9.1 (8.4-10.2) mg/dL Phosphorus 3.3 (2.5-4.5) mg/dL Magnesium 1.9 (1.6-2.3) mg/dL Total Bilirubin 1.0 (0.2-1.3) mg/dL AST 26 (14-36) U/L ALT 8 (4-34) U/L Alkaline Phosphatase 49 (38-126) U/L Troponin I (0.000-0.034) ng/mL Total Protein 6.9 (6.3-8.2) g/dL Albumin 4.3 (3.5-5.0) g/dL Lipase 114 (23-300) U/L Urine Color Colorless Urine Appearance Clear (Clear) Urine pH 6.0 (5.0-8.0) Ur Specific [place] 1.005 (1.001-1.035) Urine Protein Negative (Negative) Urine Glucose (UA) Negative (Negative) Urine Ketones Negative (Negative) Urine Blood Negative (Negative) Urine Nitrite Negative (Negative) Urine Bilirubin Negative (Negative) Urine Urobilinogen <2.0 (<2.0) mg/dL Ur Leukocyte Esterase Negative (Negative) Coronavirus (PCR) (Not Detectd) 08/06/22 08/06/22 Range/Units 17:07 17:07 WBC (3.8-10.6) k/uL RBC (3.80-5.40) m/uL Hgb (11.4-16.0) gm/dL Hct (34.0-46.0) % MCV (80.0-100.0) fL MCH (25.0-35.0) pg MCHC (31.0-37.0) g/dL RDW (11.5-15.5) % Plt Count (150-450) k/uL MPV Neutrophils % % Lymphocytes % % Monocytes % % Eosinophils % % Basophils % % Neutrophils # (1.3-7.7) k/uL Lymphocytes # (1.0-4.8) k/uL Monocytes # (0-1.0) k/uL Eosinophils # (0-0.7) k/uL Basophils # (0-0.2) k/uL Sodium (137-145) mmol/L Potassium (3.5-5.1) mmol/L Chloride (98-107) mmol/L Carbon Dioxide (22-30) mmol/L Anion Gap mmol/L BUN (7-17) mg/dL Creatinine (0.52-1.04) mg/dL Est GFR (CKD-EPI)AfAm (>60 ml/min/1.73 sqM) Est GFR (CKD-EPI)NonAf (>60 ml/min/1.73 sqM) Glucose (74-99) mg/dL Calcium (8.4-10.2) mg/dL Phosphorus (2.5-4.5) mg/dL Magnesium (1.6-2.3) mg/dL Total Bilirubin (0.2-1.3) mg/dL AST (14-36) U/L ALT (4-34) U/L Alkaline Phosphatase (38-126) U/L Troponin I <0.012 (0.000-0.034) ng/mL Total Protein (6.3-8.2) g/dL Albumin (3.5-5.0) g/dL Lipase (23-300) U/L Urine Color Urine Appearance (Clear) Urine pH (5.0-8.0) Ur Specific [place] (1.001-1.035) Urine Protein (Negative) Urine Glucose (UA) (Negative) Urine Ketones (Negative) Urine Blood (Negative) Urine Nitrite (Negative) Urine Bilirubin (Negative) Urine Urobilinogen (<2.0) mg/dL Ur Leukocyte Esterase (Negative) Coronavirus (PCR) Not Detected (Not Detectd) - Radiology Data Radiology results: report reviewed, image reviewed Disposition Clinical Impression: Chest discomfort, Nausea, Heart murmur, systolic, Hypertension, uncontrolled, Dementia, Psychiatric disorder Disposition: ADMITTED IP TO THIS [facility] Condition: Fair Referrals: Alfredo Garner MD [Primary Care Provider] - 1-2 days Decision to Admit Reason: Admit from EC Decision Time: 18:32
[2022-05-23 17:38] LABS: Appearance,Urine Clear (Clear); Bilirubin,Urine Negative (Negative); Blood,Urine Negative (Negative); Color,Urine Colorless; Glucose,Urine (UA) Negative (Negative); Ketones,Urine Negative (Negative); Leukocyte Esterase,Urine Negative (Negative); Nitrite,Urine Negative (Negative); Protein,Urine Negative (Negative); Specific Gravity,Urine 1.005 (1.001-1.035); Urobilinogen,Urine <2.0 mg/dL (<2.0)
[2022-05-23 17:42] LABS: Basophils % (A) 0 %; Eosinophils # (A) 0.2 k/uL (0-0.7); Eosinophils % (A) 3 %; HCT 32.4 % (34.0-46.0); HGB 11.2 gm/dL (11.4-16.0); Lymphocytes # (A) 1.3 k/uL (1.0-4.8); Lymphocytes % (A) 19 %; MCH 32.9 pg (25.0-35.0); MCHC 34.5 g/dL (31.0-37.0); MCV 95.5 fL (80.0-100.0); Mean Platelet Volume 7.7; Monocytes # (A) 0.3 k/uL (0-1.0); Monocytes % (A) 5 %; Neutrophils # (A) 4.9 k/uL (1.3-7.7); Neutrophils % (A) 72 %; Platelet Count 228 k/uL (150-450); RBC 3.39 m/uL (3.80-5.40); RDW 13.3 % (11.5-15.5); WBC 6.8 k/uL (3.8-10.6)
[2022-05-23 17:59] LABS: Calcium 9.1 mg/dL (8.4-10.2); Phosphorus 3.3 mg/dL (2.5-4.5)
[2022-05-23 18:02] LABS: Albumin 4.3 g/dL (3.5-5.0); Potassium 4.4 mmol/L (3.5-5.1); Total Protein 6.9 g/dL (6.3-8.2)
[2022-05-23 18:03] LABS: Magnesium 1.9 mg/dL (1.6-2.3)
--- NOTE | 2022-05-23 19:16 | XR ---
EXAMINATION TYPE: XR abdomen acute w cxr DATE OF EXAM: 05/23/2022 COMPARISON: NONE HISTORY: Nausea TECHNIQUE: 3 views FINDINGS: Heart and mediastinum are normal. Lungs are clear. Diaphragm is normal. Bony thorax is inta ct. There is mild lumbar dextroscoliosis. Lung bases are clear. No pathologic calcification seen over the kidneys. IMPRESSION: Nonacute abdomen. Normal heart.
[2022-05-23] MEDS ORDERED: ACETAMINOPHEN TAB 325 MG TAB PO PRN (19:18)
[2022-05-23] MEDS ORDERED: NALOXONE 0.4 MG/ML 1 ML VIAL IV PRN (19:18)
[2022-05-23] MEDS ORDERED: ALPRAZolam 0.25 MG TAB PO PRN (19:18)
[2022-05-23] MEDS ORDERED: ONDANSETRON 4 MG/2 ML VIAL IVP PRN (19:18)
[2022-05-23] MEDS ORDERED: MORPHINE SULFATE 4 MG/ML SYRINGE IV PRN (19:18)
[2022-05-23] MEDS ORDERED: ASPIRIN 81 MG PO STA (19:21)
[2022-05-23] MEDS: amLODIPine 5 MG TAB PO SCH (21:28)
[2022-05-23] MEDS: hydrALAZINE HCL 10 MG TAB PO SCH (21:28)
[2022-05-23] MEDS: METOPROLOL TARTRATE 50 MG TAB PO SCH (21:28)
[2022-05-23] MEDS: risperiDONE 0.25 MG TAB PO SCH (21:29)
[2022-05-23] MEDS: MEMANTINE 10 MG TAB PO SCH (21:29)
[2022-05-23] MEDS: PANTOPRAZOLE 40 MG/10 ML VIAL IV SCH (21:30)
[2022-05-23] MEDS: SODIUM CHLORIDE 0.9% 1,000 ML IV SCH (21:31)
[2022-05-23] MEDS: HEPARIN SODIUM,PORCINE/PF 5,000 UNIT/0.5 ML SYRINGE SQ SCH (23:15)
[2022-05-24] MEDS ORDERED: LOSARTAN 50 MG TAB PO STA (00:59)
[2022-05-24] MEDS ORDERED: ENALAPRILAT 1.25 MG/ML 1 ML VIAL IVP PRN (01:01)
[2022-05-24 05:56] LABS: Basophils % (A) 1 %; Eosinophils # (A) 0.2 k/uL (0-0.7); Eosinophils % (A) 2 %; HCT 35.8 % (34.0-46.0); HGB 11.7 gm/dL (11.4-16.0); Lymphocytes # (A) 1.7 k/uL (1.0-4.8); Lymphocytes % (A) 20 %; MCH 31.5 pg (25.0-35.0); MCHC 32.6 g/dL (31.0-37.0); MCV 96.9 fL (80.0-100.0); Mean Platelet Volume 7.5; Monocytes # (A) 0.4 k/uL (0-1.0); Monocytes % (A) 5 %; Neutrophils # (A) 6.1 k/uL (1.3-7.7); Neutrophils % (A) 72 %; Platelet Count 230 k/uL (150-450); RDW 13.3 % (11.5-15.5); WBC 8.6 k/uL (3.8-10.6)
[2022-05-24 06:37] LABS: Albumin 4.5 g/dL (3.5-5.0); Calcium 9.4 mg/dL (8.4-10.2); Potassium 3.9 mmol/L (3.5-5.1); Total Protein 7.3 g/dL (6.3-8.2)
[2022-05-24 08:37] VITALS: RESP 18
--- NOTE | 2022-05-24 08:51 | P.CRDCN ---
History of Present Illness Consult date: 05/24/22 Chief complaint: Nausea History of present illness: This is a 77-year-old female patient with a past medical history significant for hypertension as well as psychiatric history was admitted to the hospital after she presented with symptoms of nausea. She had no vomiting. She had no symptoms of any chest pain or chest discomfort or shortness of breath. No abdominal pain or abdominal discomfort. No diarrhea. No fever and no chills. We consulted to see the patient for further evaluation off elevated blood pressure. The patient at home was taking 5 blood pressure medications including diuretics. She stated that she has not been compliant with the medications. Her pressure in the hospital seems to be elevated. I'm not quite sure if the patient has been taking her medications regularly. She does have psychiatric history and she lives with her and in spite of that she missed her medications. When she was seen and examined this morning she is asymptomatic in chest pain or chest discomfort or shortness of breath and no dizziness or lightheadedness and no feeling of heart racing or fluttering or presyncope or syncope. She underwent a workup including enzymes came in to be unremarkable and EKG showed sinus rhythm without any significant ST or T-wave abnormalities. She underwent also an abdominal series and that came in to be unremarkable. Past Medical History Past Medical History: Asthma, GERD/Reflux, Hypertension, Memory Impairment, Renal Disease, Skin Disorder Additional Past Medical History / Comment(s): Alzheimers. ASTHMA CHILD. HX BOWEL IRREG, HAS ALOT OF GAS. CHRONIC KIDNEY FAILURE, PER LABS. SL RASH ON SHINS. History of Any Multi-Drug Resistant Organisms: None Reported Past Surgical History: Section, Cholecystectomy, Hysterectomy Additional Past Surgical History / Comment(s): COLONOSCOPY. Past Anesthesia/Blood Transfusion Reactions: Motion Sickness Past Psychological History: Depression Smoking Status: Never smoker Past Alcohol Use History: Occasional Past Drug Use History: None Reported - Past Family History Mother Family Medical History: Dementia Medications and Allergies Home Medications Medication Instructions Recorded Confirmed Type DULoxetine HCL [Cymbalta] 60 mg PO DAILY 06/04/18 05/23/22 History Losartan Potassium 100 mg PO DAILY 06/04/18 05/23/22 History Memantine [Namenda] 10 mg PO BID 09/24/20 05/23/22 History Aspirin EC [Ecotrin Low Dose] 81 mg PO DAILY 04/16/21 05/23/22 History Diclofenac Sodium 50 mg PO BID 04/16/21 05/23/22 History Isosorbide Mononitrate ER [Imdur] 30 mg PO DAILY 04/16/21 05/23/22 History Metoprolol Tartrate [Lopressor] 50 mg PO BID 04/16/21 05/23/22 History amLODIPine [Norvasc] 5 mg PO BID 04/16/21 05/23/22 History hydroCHLOROthiazide 25 mg PO DAILY 04/16/21 05/23/22 History hydrALAZINE HCL 10 mg PO BID 05/23/22 05/23/22 History risperiDONE [RisperDAL] 0.25 mg PO TID 05/23/22 05/23/22 History Allergies Allergy/AdvReac Type Severity Reaction Status Date / Time No Known Allergies Allergy Verified 05/23/22 19:06 Physical Exam Vitals: Vital Signs Temp Pulse Pulse Resp BP BP BP 05/24/22 07:00 97.8 F 62 18 179/67 05/24/22 03:48 98.0 F 64 19 193/69 05/24/22 00:21 98.0 F 18 185/73 05/23/22 22:56 56 L 20 173/65 05/23/22 21:32 68 18 204/96 05/23/22 19:10 67 19 199/77 05/23/22 16:31 99.1 F 78 20 198/74 Pulse Ox 05/24/22 07:00 100 05/24/22 03:48 98 05/24/22 00:21 100 05/23/22 22:56 98 05/23/22 21:32 99 05/23/22 19:10 99 05/23/22 16:31 99 Intake and Output 05/23/22 05/24/22 05/24/22 22:59 06:59 14:59 Other: Voiding Method Toilet # Voids 4 Weight 72.575 kg 72.575 kg - Constitutional General appearance: no acute distress - Respiratory Respiratory: bilateral: CTA - Cardiovascular Rhythm: regular Heart sounds: normal: S1, S2 Abnormal Heart Sounds: systolic murmur Results 05/24/22 05:19 05/24/22 05:19 Cardiac Enzymes 05/23/22 05/23/22 05/23/22 Range/Units 17:07 17:07 23:38 AST 26 (14-36) U/L Troponin I <0.012 <0.012 (0.000-0.034) ng/mL 05/24/22 05/24/22 Range/Units 05:19 05:19 AST 19 (14-36) U/L Troponin I <0.012 (0.000-0.034) ng/mL CBC 05/23/22 05/24/22 Range/Units 17:07 05:19 WBC 6.8 8.6 (3.8-10.6) k/uL RBC 3.39 L 3.70 L (3.80-5.40) m/uL Hgb 11.2 L 11.7 (11.4-16.0) gm/dL Hct 32.4 L 35.8 (34.0-46.0) % Plt Count 228 230 (150-450) k/uL Comprehensive Metabolic Panel 05/23/22 05/24/22 Range/Units 17:07 05:19 Sodium 139 139 (137-145) mmol/L Potassium 4.4 3.9 (3.5-5.1) mmol/L Chloride 109 H 106 (98-107) mmol/L Carbon Dioxide 21 L 25 (22-30) mmol/L BUN 15 13 (7-17) mg/dL Creatinine 1.04 1.03 (0.52-1.04) mg/dL Glucose 127 H 92 (74-99) mg/dL Calcium 9.1 9.4 (8.4-10.2) mg/dL AST 26 19 (14-36) U/L ALT 8 8 (4-34) U/L Alkaline Phosphatase 49 61 (38-126) U/L Total Protein 6.9 7.3 (6.3-8.2) g/dL Albumin 4.3 4.5 (3.5-5.0) g/dL Current Medications Generic Name Dose Route Start Last Admin Trade Name Freq PRN Reason Stop Dose Admin Acetaminophen 650 mg 05/23/22 19:18 Acetaminophen Tab 325 Mg Tab PO Q6HR PRN Mild Pain or Fever > 100.5 Alprazolam 0.25 mg 05/23/22 19:18 05/24/22 01:14 Alprazolam 0.25 Mg Tab PO 0.25 mg Q6HR PRN Administration Anxiety Amlodipine Besylate 5 mg 08/06/22 21:00 05/23/22 21:28 Amlodipine 5 Mg Tab PO 5 mg BID NAV Administration Aspirin 81 mg 05/24/22 09:00 Aspirin 81 Mg PO DAILY [facility] Clonidine 0.1 mg 05/24/22 09:00 Clonidine Hcl 0.1 Mg Tab PO BID [facility] Duloxetine HCl 60 mg 05/24/22 09:00 Duloxetine Hcl 60 Mg Capsule.Dr PO DAILY [facility] Enalaprilat 1.25 mg 05/24/22 01:01 05/24/22 03:57 Enalaprilat 1.25 Mg/Ml 1 Ml Vial IVP 1.25 mg Q6HR PRN Administration Blood Pressure - High Heparin Sodium (Porcine) 5,000 unit 05/24/22 00:00 05/23/22 23:15 Heparin Sodium,Porcine/Pf 5,000 Unit/0.5 Ml Syringe SQ 5,000 unit Q8HR NAV Administration Hydralazine HCl 10 mg 05/23/22 21:00 05/23/22 21:28 Hydralazine Hcl 10 Mg Tab PO 10 mg BID NAV Administration Hydrochlorothiazide 25 mg 05/24/22 09:00 Hydrochlorothiazide 25 Mg Tab PO DAILY [facility] Sodium Chloride 1,000 mls @ 75 mls/hr 05/23/22 19:30 05/23/22 21:31 Saline 0.9% IV 75 mls/hr .[id number] NAV Administration Isosorbide Mononitrate 30 mg 05/24/22 09:00 Isosorbide Mononitrate Er 30 Mg Tab.Er.24h PO DAILY [facility] Lorazepam 0.5 mg 05/24/22 09:00 Lorazepam 0.5 Mg Tab PO BID [facility] Losartan Potassium 100 mg 05/24/22 09:00 Losartan 50 Mg Tab PO DAILY [facility] Memantine 10 mg 05/23/22 21:00 05/23/22 21:29 Memantine 10 Mg Tab PO 10 mg BID [facility] Administration Metoprolol Tartrate 50 mg 05/23/22 21:00 05/23/22 21:28 Metoprolol Tartrate 50 Mg Tab PO 50 mg BID NAV Administration Morphine Sulfate 4 mg 05/23/22 19:18 Morphine Sulfate 4 Mg/Ml Syringe IV Q4HR PRN Severe Pain Naloxone HCl 0.2 mg 05/23/22 19:18 Naloxone 0.4 Mg/Ml 1 Ml Vial IV Q2M PRN Opioid Reversal Ondansetron HCl 4 mg 05/23/22 19:18 Ondansetron 4 Mg/2 Ml Vial IVP Q8HR PRN Nausea And Vomiting Pantoprazole Sodium 40 mg 05/23/22 19:30 05/23/22 21:30 Pantoprazole 40 Mg/10 Ml Vial IV 40 mg DAILY NAV Administration Risperidone 0.25 mg 05/23/22 22:00 05/23/22 21:29 Risperidone 0.25 Mg Tab PO 0.25 mg TID NAV Administration Intake and Output 05/23/22 05/24/22 05/24/22 22:59 06:59 14:59 Other: Voiding Method Toilet # Voids 4 Weight 72.575 kg 72.575 kg 05/24/22 05:19 05/24/22 05:19 Assessment and Plan Assessment: Assessment #1 hypertension urgency #2 persistent hypertension versus pseudo-resistant hypertension #3 multiple psychiatric issues Plan #1 the patient remains asymptomatic from a cardiovascular standpoint of view #2 she remains euvolemic on examination #3 from the cardiac standpoint of view, she can be discharged home and the hypertension can be managed as an outpatient #4 before we do any more adjustment on the medication we need to assess if the patient is compliant with her medications at home
[2022-05-24] MEDS ORDERED: cloNIDine HCL 0.1 MG TAB PO SCH (09:00)
[2022-05-24] MEDS ORDERED: ISOSORBIDE MONONITRATE ER 30 MG TAB.ER.24H PO SCH (09:00)
[2022-05-24] MEDS ORDERED: LOSARTAN 50 MG TAB PO SCH (09:00)
[2022-05-24] MEDS ORDERED: LORazepam 0.5 MG TAB PO SCH (09:00)
[2022-05-24] MEDS ORDERED: hydroCHLOROthiazide 25 MG TAB PO SCH (09:00)
[2022-05-24] MEDS ORDERED: ASPIRIN 81 MG PO SCH (09:00)
[2022-05-24] MEDS ORDERED: DULoxetine HCL 60 MG CAPSULE.DR PO SCH (09:00)
[2022-05-24] MEDS: METOPROLOL TARTRATE 50 MG TAB PO SCH (09:05)
[2022-05-24] MEDS: HEPARIN SODIUM,PORCINE/PF 5,000 UNIT/0.5 ML SYRINGE SQ SCH ×2 (09:05→14:13)
[2022-05-24] MEDS: amLODIPine 5 MG TAB PO SCH (09:06)
[2022-05-24] MEDS: PANTOPRAZOLE 40 MG/10 ML VIAL IV SCH (09:06)
[2022-05-24] MEDS: MEMANTINE 10 MG TAB PO SCH (09:06)
[2022-05-24] MEDS: hydrALAZINE HCL 10 MG TAB PO SCH (09:06)
[2022-05-24] MEDS: risperiDONE 0.25 MG TAB PO SCH ×2 (09:06→16:06)
[2022-05-24] MEDS: SODIUM CHLORIDE 0.9% 1,000 ML IV SCH (11:02)
--- NOTE | 2022-05-24 11:15 | P.HPIM ---
History of Present Illness H&P Date: 05/24/22 (dictated 0n phone) Past Medical History Past Medical History: Asthma, GERD/Reflux, Hypertension, Memory Impairment, Renal Disease, Skin Disorder Additional Past Medical History / Comment(s): Alzheimers. ASTHMA CHILD. HX BOWEL IRREG, HAS ALOT OF GAS. CHRONIC KIDNEY FAILURE, PER LABS. SL RASH ON SHINS. History of Any Multi-Drug Resistant Organisms: None Reported Past Surgical History: Section, Cholecystectomy, Hysterectomy Additional Past Surgical History / Comment(s): COLONOSCOPY. Past Anesthesia/Blood Transfusion Reactions: Motion Sickness Past Psychological History: Depression Smoking Status: Never smoker Past Alcohol Use History: Occasional Past Drug Use History: None Reported - Past Family History Mother Family Medical History: Dementia Medications and Allergies Home Medications Medication Instructions Recorded Confirmed Type DULoxetine HCL [Cymbalta] 60 mg PO DAILY 06/04/18 05/23/22 History Losartan Potassium 100 mg PO DAILY 06/04/18 05/23/22 History Memantine [Namenda] 10 mg PO BID 09/24/20 05/23/22 History Aspirin EC [Ecotrin Low Dose] 81 mg PO DAILY 04/16/21 05/23/22 History Diclofenac Sodium 50 mg PO BID 04/16/21 05/23/22 History Isosorbide Mononitrate ER [Imdur] 30 mg PO DAILY 04/16/21 05/23/22 History Metoprolol Tartrate [Lopressor] 50 mg PO BID 04/16/21 05/23/22 History amLODIPine [Norvasc] 5 mg PO BID 04/16/21 05/23/22 History hydroCHLOROthiazide 25 mg PO DAILY 04/16/21 05/23/22 History hydrALAZINE HCL 10 mg PO BID 05/23/22 05/23/22 History risperiDONE [RisperDAL] 0.25 mg PO TID 05/23/22 05/23/22 History Allergies Allergy/AdvReac Type Severity Reaction Status Date / Time No Known Allergies Allergy Verified 05/23/22 19:06 Physical Exam Vitals: Vital Signs Temp Pulse Pulse Resp BP BP BP 05/24/22 11:07 112/55 05/24/22 07:00 97.8 F 62 18 179/67 05/24/22 03:48 98.0 F 64 19 193/69 05/24/22 00:21 98.0 F 18 185/73 05/23/22 22:56 56 L 20 173/65 05/23/22 21:32 68 18 204/96 05/23/22 19:10 67 19 199/77 05/23/22 16:31 99.1 F 78 20 198/74 Pulse Ox 05/24/22 11:07 05/24/22 07:00 100 05/24/22 03:48 98 05/24/22 00:21 100 05/23/22 22:56 98 05/23/22 21:32 99 05/23/22 19:10 99 05/23/22 16:31 99 Intake and Output 05/23/22 05/24/22 05/24/22 22:59 06:59 14:59 Other: Voiding Method Toilet # Voids 4 Weight 72.575 kg 72.575 kg Results CBC & Chem 7: 05/24/22 05:19 05/24/22 05:19 Labs: Abnormal Lab Results - Last 24 Hours (Table) 05/23/22 05/23/22 05/24/22 Range/Units 17:07 17:07 05:19 RBC 3.39 L 3.70 L (3.80-5.40) m/uL Hgb 11.2 L (11.4-16.0) gm/dL Hct 32.4 L (34.0-46.0) % Chloride 109 H (98-107) mmol/L Carbon Dioxide 21 L (22-30) mmol/L Glucose 127 H (74-99) mg/dL
[2022-05-24 14:42] VITALS: BP 113/63; PULSE 60; TEMP 97.5
--- NOTE | 2022-05-24 20:09 | P.CN ---
Psychiatric Consult - . Consult date: 05/24/22 Consult:: Patient was assessed by EPS today. I have reviewed this consult with Kassie Abrams. Please see note by Kassie Abrams for psychiatry recommendations. Patient does not present as psychotic, manic, agitated or depressed. Patient can be referred to geriatric psychiatry as an outpatient for follow-up care. No medication changes are recommended at this time, and agrees with this plan. Xochitl Kuo MD Psychiatrist 05/24/22 20:00
--- NOTE | 2022-05-24 22:35 | HP ---
HISTORY AND PHYSICAL IDENTIFYING DATA: Age 77-year-old, white female, . Date of 1945. Room #618, bed 1, [address] [place] [address]. NEW DATA: SHE IS A FULL CODE. Her height 5 feet 5 inches and weight 72.575 kg, BSA 1.80 m2. BMI 26.6 kg/m2. ALLERGIES: Unknown. CHIEF COMPLAINT: The patient was brought by her to the emergency room, and at that time, they could not find any abnormality except per the patient she had some upper abdominal and lower chest discomfort, which denied that this morning when I do see her and interviewed with presence of the nurse. HISTORY OF PRESENT ILLNESS: The patient presented to the ER confused, disoriented, and her PA, Tyson Stevens. He was afraid to send her home despite significant discussion with the PA that the patient has underlying significant Alzheimer disease and bipolar disorder with depression and noncompliance with the medication due to her 's forgetfulness of giving her medication appropriately and will be resulted in hypertension uncontrolled. The patient was subsequently admitted to the hospital on the request of the PA in the ER, Mr. Tyson Stevens with normal EKG and normal troponin and is concerned that could be developed later on. Today, the patient is seen by Dr. Beltran, the Cardiology, and he cleared her up for discharge. We consulted the Psychiatry. They did not see her, and unknown when they will be seeing her with the underlying bipolar disorder, and the patient has fluctuation of the mood, and she has intermittent forgetfulness, her 's name, and sometimes wandering around and tried to get out of the house. Meanwhile, she also is forgetting my name; however, I have been seeing her every week or every 2 weeks at least, and each time, we gave her the list of medication that she should be on and advised to be seen by psychiatrist. So far, none of these has been done. Meanwhile, the patient has past medical history of arthritis of the joint, has been treated with medication and also seen by the [facility] and treated as well. PAST MEDICAL HISTORY: She has history of several admissions to [facility] as well, and she has one time admitted to the [facility]. However, her took her out because he did not like the hospital, how they treated her. She has Alzheimer disease as well as advanced psychiatric disorder, has mood disturbance as well as bipolar and fluctuation, where occasionally knows her and the family, and subsequently, she snapped out of it and become noncompliant, agitated. We tried to have the patient to be seen in the several institutions, and there is no help because there is no psychiatrist around. also tried to put her into the nursing homes, [facility] or others, and he has failure from his side as well or through the insurance problem for the patient to be admitted. Reviewing with this past medical history, she had history of underlying hypertension, and hypertension is persistent, controlled with medication. If she drops her medicine, her hypertension would be elevated, and subsequently, they would bring her to the hospital and in the ER will be admitting her automatically to the floor because of the hypertension resistance, although it is not a resistant if she takes her medication REVIEW OF SYSTEMS: The patient stated, "Who are you?" and she did not recognize me. When I told her my name, she said, "Oh, oh, yes, this is Dr. Garner", and she is complaining of her toenail and needs to be seen by a resource analyst. She forgot upper abdominal pain or discomfort, and she does not have any chest discomfort and as well as Dr. Beltran cleared her from a cardiac event, and her EKG as well as the troponin was normal. LABORATORY DATA: On admission, her white count was 6.8 with hemoglobin 11.2 with hematocrit 32.4 with platelet count 228. She has chronic anemia, however, with the repeat laboratory this morning, her hemoglobin is 11.7; white count is 8.6, within normal limit, according to the lab. Chemistry; her electrolytes were within normal limits, where the sodium was 139, potassium 4.4, chloride 109, carbon dioxide 21, and anion gap of 9 with a BUN of 15 and creatinine 1.04 with an eGFR on admission 52. However, today, her sodium is the same normal 139 and her chloride 106 without IV fluid, and she is on Hep-Lock. Her carbon dioxide is 25 and BUN of 13 and creatinine 1.03. Her blood sugar is normalized 92, on admission was 127, and her liver function test is normal including magnesium, calcium, and phosphorus. AST and ALT were within normal limits and alkaline phosphatase. Her troponin was less than 0.012 . She had total protein normal, and albumin and lipase were normal, and procalcitonin 0.05. She had also on admission coronavirus PCR, and that is not detected as well as urine analysis was negative. PHYSICAL EXAMINATION: VITAL SIGNS: On admission, her temperature was 98 oral, respiratory rate 18, her blood pressure 185/73, and saturation 100%. Today, applying her medication to be taken and given by the nurses, her blood pressure 112/55, and mean blood pressure 74 with a temperature 97.8 oral, pulse rate 62, and respiratory rate is 18. HEENT: Head was normocephalic and atraumatic. Pupils were equal and reactive. Conjunctivae were pink. Sclerae were nonicteric. She has normal hearing. She had natural teeth and able to eat and swallow. No lateralizing signs. NECK: Supple. No JVD. No thyromegaly. No lymphadenopathy. Trachea midline. CHEST: Clear to auscultation and percussion. No wheezes. No rhonchi. HEART: Regular sinus rhythm. No dysrhythmia, and no EKG changes. ABDOMEN: Soft. Positive bowel sounds. Denied any abdominal pain. EXTREMITIES: No edema. Positive pulses, bilateral. She had onychomycosis and need further resource analyst's review as outpatient. NEUROLOGICAL: She has dementia, Alzheimer's type with several CTs in the past were negative. She has bipolar, depression, and anxiety. No access to psychiatrist as outpatient. ASSESSMENT: 1. Atypical upper abdomen and lower chest discomfort, which denied today on exam. 2. Normal cardiac troponin and EKG, and no symptoms from the patient. 3. Psychiatric problem with the underlying bipolar disorder, depression and anxiety, and underlying fluctuation of the geriatric psychosis. PLAN: The patient is cleared by Cardiology, and we are waiting for the psychiatrist, and we are requesting the patient to be admitted to the psych floor for further evaluation and adjusting her medication, and for that purpose, the patient will be waiting. So far, no response from the psych floor for seeing the patient today, and we would wait until they evaluate and treat before any plan for discharge until at least knowing their opinion to discuss it with her . MMODL / IJN: [id number] /
--- NOTE | 2022-05-25 10:08 | P.DS ---
Providers Date of admission: 05/23/22 23:33 Expected date of discharge: 05/24/22 Attending physician: Alfredo JASMINE Consults: 05/23/22 19:18 Consult Physician Urgent Consulting Provider: Xochitl Kuo Consult Reason/Comments: Psychiatric history, requested by admitting physician Do you want consulting provider notified?: Yes Consult Physician Urgent Consulting Provider: Farshad Perez Consult Reason/Comments: Chest discomfort, hypertension Do you want consulting provider notified?: Yes 05/24/22 08:05 Consult Physician Urgent Consulting Provider: Xochitl Kuo Consult Reason/Comments: pyschiatric hx admit physician requested Do you want consulting provider notified?: Already Contacted Primary care physician: Alfredo Garner Dictated #[id number] Patient Condition at Discharge: Fair Plan - Discharge Summary New Discharge Prescriptions: No Action DULoxetine HCL [Cymbalta] 60 mg PO DAILY Losartan Potassium 100 mg PO DAILY Memantine [Namenda] 10 mg PO BID amLODIPine [Norvasc] 5 mg PO BID Metoprolol Tartrate [Lopressor] 50 mg PO BID Aspirin EC [Ecotrin Low Dose] 81 mg PO DAILY Diclofenac Sodium 50 mg PO BID hydroCHLOROthiazide 25 mg PO DAILY Isosorbide Mononitrate ER [Imdur] 30 mg PO DAILY risperiDONE [RisperDAL] 0.25 mg PO TID hydrALAZINE HCL 10 mg PO BID Discharge Medication List DULoxetine HCL [Cymbalta] 60 mg PO DAILY 06/04/18 [History] Losartan Potassium 100 mg PO DAILY 06/04/18 [History] Memantine [Namenda] 10 mg PO BID 09/24/20 [History] Aspirin EC [Ecotrin Low Dose] 81 mg PO DAILY 04/16/21 [History] Diclofenac Sodium 50 mg PO BID 04/16/21 [History] Isosorbide Mononitrate ER [Imdur] 30 mg PO DAILY 04/16/21 [History] Metoprolol Tartrate [Lopressor] 50 mg PO BID 04/16/21 [History] amLODIPine [Norvasc] 5 mg PO BID 04/16/21 [History] hydroCHLOROthiazide 25 mg PO DAILY 04/16/21 [History] hydrALAZINE HCL 10 mg PO BID 05/23/22 [History] risperiDONE [RisperDAL] 0.25 mg PO TID 05/23/22 [History] Follow up Appointment(s)/Referral(s): Alfredo Garner MD [Primary Care Provider] - 1-2 days Discharge Disposition: Left Against Medical Advice
--- NOTE | 2022-05-26 08:09 | DS ---
DISCHARGE SUMMARY HISTORY: A 77-year-old white female, and she was on [address] [place] [address]. NEW DATA: She is a FULL CODE. Her height is 5 feet 5 inches, weight 72.575 kg, BSA 1.80 m2, BMI 26.6 kg/m square. ALLERGIES: Unknown. DISPOSITION: Against medical advice, AMA. FINAL DIAGNOSES: 1. Admitted with atypical chest pain on observation status. 2. Hypertension urgency. On discharge, vital sign was stable with the temperature 97.5 oral, pulse 60, respiratory rate 18, and blood pressure 113/63 with a mean blood pressure 79. Her oxygen saturation 99% on room air. Her last laboratory done on 05/24/2022 was stable. The patient was seen during her hospital admission by Cardiology, Dr. Beltran, and cleared her for discharge, also seen by psychiatry and Dr. Xochitl Kuo who stated that the patient does not present as a psychiatric manic, agitated or depressed and can be referred on geriatric psychiatry as outpatient, which we do not have any psychiatry geriatric in [facility]. The patient admitted with confusion, disorientation, and with the underlying bipolar disorders with the underlying dementia. The patient was kept overnight for observation of the blood pressure with the history of recurrent fluctuation of hypertensive urgency. The patient and her decided to sign against medical advice and signed out as AMA with the final diagnosis, 1. Chest discomfort, atypical chest pain with normal EKG and normal cardiac enzymes. 2. Bipolar disorder with forgetfulness and acute confusion and psychiatry evaluation was not helpful for addressing the treatment and medication. 3. Evaluation by Cardiology was done. Advised to be followed as outpatient by Cardiology. 4. Hypertension has been controlled. 5. The patient is noncompliant for the treatment with the recurrence of her current problem and treatment, to continue her home indication as she was signed AMA and to be followed by geriatric psychiatry per the psychiatrist, which we do not have done in [facility] and they did not give her other facilities that may have helped the patient and the psychiatric consult was not helpful. Patient's disposition against medical advice. MMODL / IJN: [id number] /
== END 2022-05-24 19:21 | disposition left against medical advice (07) ==
LOC: EC 16:28 → 6NMEDSUR 23:33
PROVIDERS: ADMIT Internal Medicine; ATTEND Internal Medicine
DX: I16.0 Hypertensive urgency (principal); R07.89 Other chest pain; J45.909 Unspecified asthma, uncomplicated; K21.9 Gastro-esophageal reflux disease without esophagitis; R41.3 Other amnesia; I12.9 Hypertensive chronic kidney disease with stage 1 through stage 4 chronic kidney disease, or unspecified chronic kidney disease; N18.9 Chronic kidney disease, unspecified; G30.9 Alzheimer's disease, unspecified; Z20.822 Contact with and (suspected) exposure to COVID-19; Z91.14 Patient's other noncompliance with medication regimen; Z91.19 Patient's noncompliance with other medical treatment and regimen; R14.3 Flatulence; Z81.8 Family history of other mental and behavioral disorders; F31.9 Bipolar disorder, unspecified; F41.9 Anxiety disorder, unspecified; K27.9 Peptic ulcer, site unspecified, unspecified as acute or chronic, without hemorrhage or perforation; K29.70 Gastritis, unspecified, without bleeding; K85.90 Acute pancreatitis without necrosis or infection, unspecified; Z98.891 History of uterine scar from previous surgery; Z90.49 Acquired absence of other specified parts of digestive tract; Z90.710 Acquired absence of both cervix and uterus; Z79.82 Long term (current) use of aspirin; Z79.899 Other long term (current) drug therapy
CPT/HCPCS: 96376; 96365; 96372 ×2; 96375 ×2; 96361; 99285; 36415; 93005; 80053 ×2; 83690; 83735; 84100; 84484 ×2; 85025 ×2; 81003; 84145; 87635; 74022; G0378; J2405; J0696; C9113 ×2; J1644 ×2